=== PATIENT | male | born 1990 | race Caucasian/White ===

== ENCOUNTER 2017-12-14 21:30 | Emergency (ER) | payer SELFPAY ==
[~2017-12-14] VITALS: Ht 180.3 cm; Wt 90.7 kg
[~2017-12-14 21:30] MED LIST: KEFLEX500 MG PO; PENICILLIN VK500 MG PO; VICODIN 5/500 505 MG PO; VICODIN 500 MG-1 TAB PO
[2017-12-14] MEDS ORDERED: Motrin,Rufen800 MG PO (21:54)
[2017-12-14] MEDS ORDERED: CEFADROXIL500 M1 PO (21:54)
== END 2017-12-14 21:42 | disposition home or self-care (01) ==
LOC: ED 21:30
DX: S61.512A Laceration without foreign body of left wrist, initial encounter (principal); Z98.890 Other specified postprocedural states; W25.XXXA Contact with sharp glass, initial encounter; Y93.89 Activity, other specified; Y92.89 Other specified places as the place of occurrence of the external cause; Y99.8 Other external cause status

== ENCOUNTER → 2020-06-05 | Outpatient (CLI) | payer SELFPAY ==
[~2020-06-05] MED LIST changes: +CEFADROXIL500 M1 PO; +Motrin,Rufen800 MG PO
== END | disposition home or self-care (01) ==
LOC: COVID19 09:07
PROVIDERS: ATTEND Internal Medicine
DX: U07.1 COVID-19 (principal)